=== PATIENT | female | born 1985 | race Caucasian/White ===

== ENCOUNTER 2020-07-02 14:17 | Outpatient (REF) | payer OTHER, SELFPAY ==
[2020-07-03 03:45] LABS: CT PCR NOT DETECTED (Not Detect.); NG PCR NOT DETECTED (Not Detect.)
[2020-07-03 13:41] LABS: BV Int Neg Control Negative (Negative); BV Int Pos Control Positive (Positive)
[2020-07-07 21:37] LABS: HPV mRNA E6/E7 Not Detected (Not Detected)
== END 2020-07-02 14:18 | disposition home or self-care (01) ==
LOC: HO.LAB 14:17
PROVIDERS: PCP Family Medicine; Referring Provider Family Medicine; Visit Provider Obstetrics & Gynecology
DX: O09.41 Supervision of pregnancy with grand multiparity, first trimester (principal); O24.311 Unspecified pre-existing diabetes mellitus in pregnancy, first trimester; O23.11 Infections of bladder in pregnancy, first trimester; E11.9 Type 2 diabetes mellitus without complications; Z87.59 Personal history of other complications of pregnancy, childbirth and the puerperium; Z3A.00 Weeks of gestation of pregnancy not specified
CPT/HCPCS: 87480; 87491; 87510; 87591; 87624; 87625; 87660; 88142; 96372; 99211

== ENCOUNTER → 2020-07-09 | Outpatient (BNVA) | payer OTHER, SELFPAY | PROVIDERS: Visit Provider Advanced Practice Midwife | DX: A53.9 Syphilis, unspecified (principal) | CPT/HCPCS: 96372; 99211 ==

== ENCOUNTER 2020-07-16 12:45 | Outpatient (REF) | payer OTHER, SELFPAY | END 2020-07-16 12:46 | disposition home or self-care (01) | LOC: HO.US 12:45 | PROVIDERS: Visit Provider Obstetrics & Gynecology | DX: O09.41 Supervision of pregnancy with grand multiparity, first trimester (principal); O24.311 Unspecified pre-existing diabetes mellitus in pregnancy, first trimester; E11.69 Type 2 diabetes mellitus with other specified complication; A53.9 Syphilis, unspecified; Z87.59 Personal history of other complications of pregnancy, childbirth and the puerperium | CPT/HCPCS: 99211 ==

== ENCOUNTER 2020-07-23 12:51 | Outpatient (REF) | payer OTHER, SELFPAY ==
--- NOTE | 2020-07-23 13:51 | US_ITS ---
EXAMINATION: US OBSTETRICAL CLINICAL INFORMATION: 35-year-old at 18.3 weeks of gestation Suspected anomaly COMPARISON: 06/11/2020 TECHNIQUE: Real-time transabdominal ultrasound was performed using C1-5 megahertz transducer. FINDINGS: A single, active, fetus is seen in vertex presentation. The placenta is anterior without previa, and the amniotic fluid volume is wnl. MEASUREMENTS: 1. Biparietal Diameter: 4.3 cm; 19.1 wks 2. Occipital Frontal Diameter: 5.5 cm 3. Head Circumference: 15.8 cm; 18.5 wks 4. Abdominal Circumference: 13.99 cm; 19.3 wks 5. Femur Length: 3.0 cm; 19.3 wks 6. Humerus Length: 2.8 cm; 19.2 wks 7. Tibia Length: 2.6 cm; 19.3 wks 8. Ulna Length: 2.53 cm; 19.1 wks 9. Lateral ventricle: 0.68 cm 10. Cerebellum: 1.9 cm; 19.3 wks 11. Cisterna Magna: 0.37 cm 12. Nuchal Fold: 3.7 mm 13. Heart Rate: 155 beats per minute Rt ovary: normal Lt ovary: normal Cervical length 3.6 cm on T/A. GESTATIONAL AGE: 1. Established GA: 18.3 wks 2. GA from [facility]: 19.2 wks ESTIMATED DATE OF DELIVERY: 1. Established KIRBY: 12/21/2020 2. KIRBY from [facility]: 12/15/2020 ANATOMY: The visualized anatomy includes but not limited to: 1. Cranium: Normal 2. Intracranial anatomy: cavum septum pellucidi, lateral ventricles, choroid plexus, cerebellum, posterior fossa, third and fourth ventricles. 3. face: orbits, lip/palate, profile, nasal bone 4. Heart: four-chamber view of the heart, ventricular septum, foramen ovale, pulmonary vein, left and right outflow tracts, three-vessel view, 3 vessel trachea view, aortic and ductal arches, situs.. 5. Diaphragm: Normal 6. Abdominal wall: Normal 7. Cord Insertion: Normal 8. Spine: Cervical, thoracic, lumbar, sacral. 9. Stomach: Normal size and shape 10. Right Kidney: Normal 11. Left Kidney: Normal 12. 3 vessel cord: Normal 13. Upper extremity: Open hands, fifth digit. 14. Lower extremity: Tibia, fibula, bilateral feet. 15. Bladder: Normal 16. Genitalia: Female, patient not aware US/US OB /maternal detail IMPRESSION: 1. Single, living, intrauterine with appropriate biometry. 2. Normal survey DISCUSSION: I reviewed today's ultrasound findings. We discussed the limitations of ultrasound in diagnosing aneuploidy and other congenital abnormalities. I reviewed the differences between screening test and diagnostic test. Amniocentesis was discussed and declined. She was informed that the baseline incidence of congenital abnormalities is approximately 3-5%. Not all these conditions are diagnosable in utero. RECOMMENDATIONS: 1. No further ultrasound was scheduled today. Thank you for allowing me to participate in her care. Visiting time 25 minutes. Majority of this visit was spent reviewing and discussing her care.
== END 2020-07-23 12:52 | disposition home or self-care (01) ==
LOC: HO.US 12:51
PROVIDERS: Absent Provider Obstetrics & Gynecology; Visit Provider Advanced Practice Midwife
DX: Z34.82 Encounter for supervision of other normal pregnancy, second trimester (principal)
CPT/HCPCS: 76811

== ENCOUNTER 2020-09-09 10:21 | Outpatient (REF) | payer OTHER, SELFPAY ==
[2020-09-09 12:06] LABS: MANUAL DIFF FLAG NO
[2020-09-09 12:22] LABS: Basophils Percent Auto 0.2 % (0-2); Eosinophils Absolute Auto 0.1 X10*3/uL (0.0-0.4); Eosinophils Percent Auto 0.5 % (0-4); Hematocrit 34.3 % (37-47); Hemoglobin 11.8 g/dl (12.0-16.0); Imm Gran Pct Auto 0.9 % (0.0-0.4); Lymphocytes Absolute Auto 2.2 X10*3/uL (1.2-4.9); Lymphocytes Percent Auto 20.7 % (20-40); Mean Corpuscular HGB Conc 34.4 g/dl (31.0-35.0); Mean Corpuscular Hemoglobin 31.3 pg (27.0-33.0); Mean Platelet Volume 10.1 fL (9.4-12.3); Monocytes Absolute Auto 0.7 X10*3/uL (0.1-1.2); Monocytes Percent Auto 6.3 % (2-11); Neutrophils Absolute Auto 7.6 X10*3/uL (2.0-8.3); Neutrophils Percent Auto 71.4 % (45-73); Platelet Count 259 X10*3/uL (160-400); Red Blood Count 3.77 X10*6/uL (4.20-5.50); Red Cell Distribution Width 13.1 % (11.0-16.0); White Blood Count 10.6 X10*3/uL (4.8-10.8)
[2020-09-13 03:59] LABS: Syphilis Screen Reactive (Nonreactive)
[2020-10-04 13:55] LABS: RPR Quantitative Reactive 1:1 (Nonreactive)
[2020-10-04 13:57] LABS: T.Pallidum Particle Agg Test Reactive (Nonreactive)
== END 2020-09-09 10:22 | disposition home or self-care (01) ==
LOC: HO.LAB 10:21
PROVIDERS: PCP Family Medicine; Visit Provider Obstetrics & Gynecology
DX: O09.92 Supervision of high risk pregnancy, unspecified, second trimester (principal); Z11.3 Encounter for screening for infections with a predominantly sexual mode of transmission; Z87.891 Personal history of nicotine dependence
CPT/HCPCS: 36415; 81003; 85025; 86592; 86780; 99212

== ENCOUNTER 2020-09-09 11:10 | Outpatient (REF) | payer OTHER, SELFPAY | END 2020-09-09 11:11 | disposition home or self-care (01) | LOC: HO.LAB 11:10 | PROVIDERS: Visit Provider Obstetrics & Gynecology | DX: O23.40 Unspecified infection of urinary tract in pregnancy, unspecified trimester (principal) | CPT/HCPCS: 87086 ==

== ENCOUNTER → 2020-10-01 13:31 | Outpatient (BNVA) | payer OTHER, SELFPAY | PROVIDERS: PCP Family Medicine; Visit Provider Obstetrics & Gynecology | DX: Z13.89 Encounter for screening for other disorder (principal) | CPT/HCPCS: 99212 ==

== ENCOUNTER → 2020-10-11 10:31 | Outpatient (BNVA) | payer OTHER, SELFPAY | PROVIDERS: PCP Family Medicine; Visit Provider Advanced Practice Midwife | DX: O47.00 False labor before 37 completed weeks of gestation, unspecified trimester (principal) | CPT/HCPCS: 81003; 99212 ==

== ENCOUNTER → 2020-10-15 15:27 | Outpatient (BNVA) | payer OTHER, SELFPAY | PROVIDERS: PCP Family Medicine; Visit Provider Obstetrics & Gynecology | DX: O09.93 Supervision of high risk pregnancy, unspecified, third trimester (principal) | CPT/HCPCS: 81003; 99212 ==

== ENCOUNTER → 2020-10-26 08:55 | Outpatient (BNVA) | payer MEDICAID, SELFPAY | PROVIDERS: PCP Family Medicine; Visit Provider Obstetrics & Gynecology | DX: Z34.90 Encounter for supervision of normal pregnancy, unspecified, unspecified trimester (principal) | CPT/HCPCS: 59025; 99212 ==

== ENCOUNTER 2020-10-29 10:52 | Outpatient (REF) | payer MEDICAID, SELFPAY ==
--- NOTE | ~2020-10-29 | US_ITS ---
EXAMINATION: OBSTETRICAL ULTRASOUND, Follow up HISTORY: 35-year-old at 32.3 weeks of gestation Pregestational diabetes Size date discrepancy COMPARISON: 08/06/2020 TECHNIQUE: Real time transabdominal imaging with color and M-mode Doppler. PRESENTATION: Vertex PLACENTA LOCATION: Anterior without previa AMNIOTIC FLUID: MARLENY 15.5 cm MEASUREMENTS: 1. Biparietal Diameter: 8.1 cm; 32.5 wks 2. Head Circumference: 29.6 cm; 32.6 wks 3. Abdominal Circumference: 32.95 cm; 37.0 wks 4. Femur Length: 6.5 cm; 33.3 wks 5. Heart Rate: 163 beats per minute WEIGHT: EFW: 2646 grams (5 lbs 13 oz) -- 98 %. BIOPHYSICAL PROFILE: Motion: 2 Tone: 2 Breathin Amniotic Fluid: 2 Total score: 8/8 GESTATIONAL AGE: 1. Established GA: 32.3 wks 2. GA from [facility]: 34.0 wks ESTIMATED DATE OF DELIVERY: 1. Established KIRBY: 12/21/2020 2. KIRBY from [facility]: 12/10/2020 US/US OB follow up IMPRESSION: 1. A single active fetus is in vertex presentation 2. Size greater than dates, EFW corresponds to 98th percentile 3. Reassuring biophysical profile with normal amniotic fluid volume I reviewed the ultrasound findings and informed her that the EFW corresponds to the 98th percentile. In the setting of diabetes, this is a concerning observation. Her first was also complicated by diabetes. She delivered a healthy boy with weight of 6 lbs. 12 oz. If the EFW exceeds 4500 g at term, an elective section to prevent shoulder dystocia should be discussed. In addition the fetus will be at risk of hypoglycemia. She is on 6 units of NPH to a.m. and daily at bedtime. Her diabetes is being managed at [facility]. She reports that her fasting values range from 90-100. Her postprandial values are above 120. She has been scheduled for weekly testing. Thank you very much for this referral. Total time 30 minutes. (7,15,8)
== END 2020-10-29 10:53 | disposition home or self-care (01) ==
LOC: HO.US 10:52
PROVIDERS: Visit Provider Obstetrics & Gynecology
DX: O24.419 Gestational diabetes mellitus in pregnancy, unspecified control (principal); O26.843 Uterine size-date discrepancy, third trimester; Z3A.32 32 weeks gestation of pregnancy
CPT/HCPCS: 76816

== ENCOUNTER → 2020-11-02 13:51 | Outpatient (BNVA) | payer MEDICAID, SELFPAY | PROVIDERS: PCP Family Medicine; Visit Provider Obstetrics & Gynecology | DX: Z34.90 Encounter for supervision of normal pregnancy, unspecified, unspecified trimester (principal) | CPT/HCPCS: 59025; 99212 ==

== ENCOUNTER 2021-11-03 12:39 | Outpatient (REF) | payer MEDICAID, SELFPAY | END 2021-11-03 12:40 | disposition home or self-care (01) | LOC: HO.LNP 12:39 | PROVIDERS: PCP Emergency Medicine; Referring Provider Emergency Medicine; Visit Provider Surgery | DX: L02.211 Cutaneous abscess of abdominal wall (principal) | CPT/HCPCS: 10060; 87071; 87077; 87186; 87205; 99202 ==